=== PATIENT | male | born 1975 | race Caucasian/White ===

== ENCOUNTER → 2016-09-24 | Emergency (ER) | payer OTHER ==
[~2016-09-24] MED LIST: SODIUM CHLORIDE 1,000 ML IV STA
[2016-09-24 13:06] VITALS: BP 126/75; PULSE 63; TEMP 97.6; BMI 30.7
--- NOTE | 2016-09-24 13:54 | PDOC ---
History of Present Illness - General Chief Complaint: Lightheaded Stated Complaint: WEAKNESS, DIZZINESS, NAUSEA PALE Time Seen by Provider: 09/24/16 13:30 - History of Present Illness Initial Comments: 09/24/16 14:00 Patient is a 41 year old male with a PMHx of Polycystic kidney disease, HTN, Diverticulitis, and Asthma who presents to the ED after an episode of diaphoresis, dizziness, lightheadedness with near syncope. Patient states he was in the bathroom due to a second episode of left upper quadrant abdominal pain and nonbloody diarrhea when he suddenly "felt faint." He looked in the mirror and noticed he looked pale. Patient reports he was very diaphoretic associated with nausea. When questioning about his abdominal pain and diarrhea the patient states he had one episode of sharp nonradiating left upper quadrant pain with one episode of diarrhea last night around 0200 and another one this afternoon. Patient states he was nor recently sick and that he had an intense workout last night and this morning. Patient states the episode of dizziness and lightheadedness was the first time he experienced it. He denies chest pain, palpitations, shortness of breath He denies loss of consciousness, headaches, acute visual changes He denies fever, chills, vomiting. He denies dysuria, frequency, urgency PMHx: Polycystic kidney disease, HTN, Diverticulitis, and Asthma PSHx: Cholecystectomy MEDS: Lisinopril 20mg PO daily Allergies: Sulfa drugs, Oxycodone, Shellfish Socials: Denies drugs or smoking. Social drinker PCP: Dr. Tanna Mcgarry Past History - Past Medical History Allergies/Adverse Reactions: Allergies Allergy/AdvReac Type Severity Reaction Status Date / Time oxycodone HCl Allergy Verified 09/24/16 13:06 [From OxyContin] Sulfa (Sulfonamide Allergy Swelling Verified 09/24/16 13:06 Antibiotics) Home Medications: Ambulatory Orders Lisinopril [Prinivil] 20 mg PO DAILY 09/24/16 Dialysis: No (KIDNEY PROBLEMS--POLYCYSTIC) GI Disorders: Yes (DIVERTICULITIS) HTN: Yes - Surgical History Abdominal Surgery: Yes (ING HERNIA) Cholecystectomy: Yes - Psycho/Social/Smoking Cessation Hx Suicidal Ideation: No Smoking History: Never smoked Hx Alcohol Use: Yes (SOCIAL) Drug/Substance Use Hx: No Substance Use Type: None Review of Systems - Review of Systems Constitutional: Yes: Diaphoresis. No: Chills, Fever, Loss of Appetite, Malaise , Night Sweats HEENTM: No: Eye Pain, Blurred Vision, Double Vision, Nose Congestion, Throat Pain, Throat Swelling, Difficulty Swallowing Respiratory: No: See HPI, Cough, Orthopnea, Shortness of Breath, SOB with Exertion, SOB at Rest, Stridor, Wheezing, Productive cough, Hemoptysis Cardiac (ROS): Yes: Lightheadedness. No: Chest Pain, Edema, Irregular Heart Rate, Palpitations, Syncope, Chest Tightness ABD/GI: Yes: Diarrhea, Nausea, Abdominal cramping (left upper quadrant ). No: Difficulty Swallowing, Poor Fluid Intake, Vomiting : No: Burning, Dysuria, Discharge, Frequency, Hematuria Musculoskeletal: No: Back Pain, Joint Pain Integumentary: No: Bruising, Dryness, Erythema Neurological: Yes: Dizziness. No: Headache, Numbness, Paresthesia, Weakness Psychiatric: No: Anxiety, Depression Endocrine: No: Intolerance to Cold, Intolerance to Heat Hematologic/Lymphatic: No: Anemia, Blood Clots *Physical Exam - Vital Signs Last Vital Signs Temp Pulse Resp BP Pulse Ox 97.6 F 63 20 126/75 98 09/24/16 13:03 09/24/16 13:03 09/24/16 13:03 09/24/16 13:03 09/24/16 13:03 - Physical Exam Comments: 09/24/16 14:24 GENERAL: Well developed, well nourished. Awake and alert. No acute distress. HEENT: Normocephalic, atraumatic. PERRLA, EOMI. No conjunctival pallor. Sclera are non-icteric. Moist mucous membranes. Oropharynx is clear. NECK: Supple. Full ROM. No JVD. Carotid pulses 2+ and symmetric, without bruits. CARDIOVASCULAR: Regular rate and rhythm. No murmurs, rubs, or gallops. Distal pulses are 2+ and symmetric. PULMONARY: No evidence of respiratory distress. Lungs clear to auscultation bilaterally. No wheezing, rales or rhonchi. ABDOMINAL: Soft. Tenderness upon deep palpation of left upper quadrant. Non- distended. No rebound or guarding. No organomegaly. Normoactive bowel sounds. MUSCULOSKELETAL: Normal range of motion at all joints. No bony deformities or tenderness. No CVA tenderness. EXTREMITIES: No cyanosis. No clubbing. No edema. No calf tenderness. SKIN: Warm and dry. Normal capillary refill. No rashes. No jaundice. NEUROLOGICAL: Alert, awake, appropriate. Cranial nerves 2-12 intact. No motor deficits in the in face, upper extremities and lower extremities. Normal speech. PSYCHIATRIC: Cooperative. Good eye contact. Appropriate mood and affect Heart Score/ECG Review - ECG Impressions Comment:: 09/24/16 15:50 Sinus bradycardia @56 BPM, (-) ST-T Changes, QTc 391ms ED Treatment Course - LABORATORY CBC & Chemistry Diagram: 09/24/16 14:16 09/24/16 14:16 - ADDITIONAL ORDERS Additional order review: Laboratory Results 09/24/16 09/24/16 15:59 14:16 Sodium 139 Potassium 4.4 Chloride 104 Carbon Dioxide 25 Anion Gap 10 BUN 35 H Creatinine 1.6 H Creat Clearance w eGFR 48.36 Random Glucose 119 H Calcium 9.1 Total Bilirubin 1.6 H AST 28 ALT 28 Alkaline Phosphatase 58 Total Protein 7.0 Albumin 4.2 Lipase 190 Urine Color Lt. yellow Urine Appearance Clear Urine pH 5.5 Ur Specific [place] 1.015 Urine Protein Negative Urine Glucose (UA) Negative Urine Ketones Negative Urine Blood Negative Urine Nitrite Negative Urine Bilirubin Negative Urine Urobilinogen 0.2 e.u/dl Ur Leukocyte Esterase Negative 09/24/16 14:16 RBC 4.27 MCV 92.6 MCHC 34.1 RDW 13.5 MPV 9.4 Neutrophils % 71.7 Lymphocytes % 17.2 Monocytes % 8.3 Eosinophils % 1.9 Basophils % 0.9 - Medications Given in the ED: ED Medications Discontinued Medications Generic Name Dose Route Start Last Admin Trade Name Freq PRN Reason Stop Dose Admin Sodium Chloride 1,000 mls @ 1,000 mls/hr 09/24/16 13:59 09/24/16 14:10 Normal Saline - IV 09/24/16 14:58 1,000 mls/hr ASDIR STA Administration Medical Decision Making - Medical Decision Making 09/24/16 14:28 Patient is a 41 year old male with a PMHx of PCKD, HTN, Diverticulitis, Asthma who presents to the ED for abdominal pain, nausea, diarrhea, dizziness, lightheadedness, diaphoresis with a near syncopal episode. Differential Diagnosis include but not limited to hypovolemia, electrolyte abnormality, gastroenteritis, vasovagal syncope. ED Course and Treatment: -CBC -CMP -Lipase -Urinalysis -IV NS 1 Bolus 09/24/16 15:21 -CBC wnl -CMP revealed Cr 1.6 but states he was informed by his PCP that creatinine is elevated possibly due to PCKD -Patient re-evaluated and states he is feeling much better and is able to ambulate without dizziness or lightheadedness -EKG pending -Continue with fluids 09/24/16 15:49 -EKG wnl -Patient tolerating solids and fluids without any complaints. He denies any current abdominal pain. -U/A pending and will likely be discharged home 09/24/16 16:17 -U/A Negative -Patient may be discharged home and is to follow up with PCP *DC/Admit/Observation/Transfer Diagnosis at time of Disposition: Pre-syncope - Discharge Dispostion Disposition: HOME Condition at time of disposition: Stable Admit: No - Patient Instructions Additional Instructions: -Please follow up with your primary care physician and discuss with your physician about your elevated creatinine -If you experience any loss of consciousness or shortness of breath and chest pain, return to the ED -Decrease your protein intake -Remain hydrated and drink a lot of water
[2016-09-24 14:33] LABS: BASOPHIL 0.9 % (0-2.0); EOSINOPHIL 1.9 % (0-4.5); MCH 31.6 pg (25.7-33.7); MCHC 34.1 g/dl (32.0-35.9); MEAN CELL VOLUME 92.6 fl (80-96); MEAN PLT VOLUME 9.4 fl (7.5-11.1); NEUTROPHILS 71.7 % (42.8-82.8); PLATELET COUNT 233 K/MM3 (134-434); RDW 13.5 % (11.9-15.9); WHITE BLOOD COUNT 8.1 K/mm3 (4.0-10.0)
[2016-09-24 14:55] LABS: ALBUMIN 4.2 g/dl (3.4-5.0); CALCIUM 9.1 mg/dL (8.5-10.1); CREATININE 1.6 mg/dL (0.7-1.3)
[2016-09-24 14:57] LABS: BILIRUBIN,TOTAL 1.6 mg/dL (0.2-1.0)
--- NOTE | 2016-09-24 15:47 | PDOC ---
Attending Attestation - Resident Resident Name: Arline Bowling - ED Attending Attestation I have performed the following: I have examined & evaluated the patient, The case was reviewed & discussed with the resident, I agree w/resident's findings & plan, Exceptions are as noted - HPI HPI: 09/24/16 15:46 41-year-old male with history of polycystic kidney presents with episode of lightheadedness following abdominal cramping and loose stool. - Physicial Exam PE: 09/24/16 15:46 Vital signs normal. Seen after IV fluids, feels and looks well, moist mucosa, abdomen is benign without focal guarding or rebound. - Medical Decision Making 09/24/16 15:46 Patient seen and evaluated with the resident. I agree with the overall evaluation, assessment, and management with the following summary of visit: 41-year-old male presents with likely vasovagal lightheadedness in the setting of abdominal cramping and loose stool, now resolved and feeling well. Labs are within normal limits, creatinine 1.6 which has been his recent baseline EKG without acute ischemic changes, QTC 391, intervals normal. Tolerating by mouth, received IV fluids, check UA and then likely discharge.
[2016-09-24 16:10] LABS: PH,URINE 5.5 (5.0-8.0); URINE APPEARANCE CLEAR; URINE BILIRUBIN NEGATIVE (NEGATIVE); URINE BLOOD NEGATIVE (NEGATIVE); URINE COLOR LT. YELLOW; URINE GLUCOSE (UA) NEGATIVE (NEGATIVE); URINE KETONE NEGATIVE (NEGATIVE); URINE LEUK ESTERASE NEGATIVE (NEGATIVE); URINE NITRITE NEGATIVE (NEGATIVE); URINE PROTEIN NEGATIVE (NEGATIVE); URINE UROBILINOGEN 0.2 E.U/dl E.U./dl (0.2-1.0)
--- NOTE | 2016-09-24 23:54 | EKG ---
Test Reason : Blood Pressure : / mmHG Vent. Rate : 056 BPM Atrial Rate : 056 BPM P-R Int : 176 ms QRS Dur : 090 ms QT Int : 406 ms P-R-T Axes : 058 063 054 degrees QTc Int : 391 ms SINUS BRADYCARDIA OTHERWISE NORMAL ECG NO PREVIOUS ECGS AVAILABLE Confirmed by TOÑO GAMEZ, EKATERINA ([id number]) on 09/24/2016 11:53:59 PM Referred By: Confirmed By:EKATERINA LUNDBERG MD
== END | disposition home or self-care (01) ==
LOC: JER 13:00
PROC: 3E0337Z Introduction of Electrolytic and Water Balance Substance into Peripheral Vein, Percutaneous Approach (ICD-10-PCS; principal; 2016-09-24)
DX: R55 Syncope and collapse (principal); I10 Essential (primary) hypertension; J45.909 Unspecified asthma, uncomplicated; K57.90 Diverticulosis of intestine, part unspecified, without perforation or abscess without bleeding; Q61.3 Polycystic kidney, unspecified
CPT/HCPCS: 36415; 80053; 81003; 83690; 85025; 93005; 93010; 96360; 99283-25

== ENCOUNTER 2018-07-21 20:14 | Emergency (ER) | payer OTHER ==
[2018-07-21 20:20] VITALS: BP 137/86; PULSE 70; BMI 27.3
--- NOTE | 2018-07-21 20:38 | PDOC ---
Rapid Medical Evaluation Chief Complaint: Pain Time Seen by Provider: 07/21/18 20:29 Medical Evaluation: Allergies Allergy/AdvReac Type Severity Reaction Status Date / Time oxycodone HCl Allergy Verified 07/21/18 20:20 [From OxyContin] Sulfa (Sulfonamide Allergy Swelling Verified 07/21/18 20:20 Antibiotics) Vital Signs Temp Pulse Resp BP Pulse Ox 70 18 137/86 98 07/21/18 20:16 07/21/18 20:16 07/21/18 20:16 07/21/18 20:16 07/21/18 20:29 Pt c/o: rt 3rd digit injury after hitting it against a table Pt on exam: noted mild edema to rt 3rd digit. noted small hematoma under nailbed Pt ordered: finger xray pt to proceed to the ED Discharge Disposition - Diagnosis Finger contusion - Referrals Referrals: Valerie Gann [Primary Care Provider] - - Patient Instructions - Post Discharge Activity
--- NOTE | 2018-07-21 20:47 | PDOC ---
History of Present Illness - General Chief Complaint: Pain Stated Complaint: SWOLLEN LEFT FOOT Time Seen by Provider: 07/21/18 20:29 - History of Present Illness Initial Comments: 07/21/18 20:44 43-year-old male with a past medical history significant for hypertension presents for evaluation of left foot pain and redness times one day no systemic symptoms. This foot between his fourth and fifth toe since that time his foot has become increasingly red and swollen Past History - Past Medical History Allergies/Adverse Reactions: Allergies Allergy/AdvReac Type Severity Reaction Status Date / Time oxycodone HCl Allergy Verified 07/21/18 20:20 [From OxyContin] Sulfa (Sulfonamide Allergy Swelling Verified 07/21/18 20:20 Antibiotics) Home Medications: Ambulatory Orders Lisinopril [Prinivil] 20 mg PO DAILY 09/24/16 Clindamycin [Cleocin -] 300 mg PO Q6HPO #28 capsule 07/21/18 COPD: No Dialysis: No (KIDNEY PROBLEMS--POLYCYSTIC) GI Disorders: Yes (DIVERTICULITIS) HTN: Yes - Surgical History Abdominal Surgery: Yes (ING HERNIA) Cholecystectomy: Yes - Suicide/Smoking/Psychosocial Hx Smoking History: Never smoked Hx Alcohol Use: Yes (SOCIAL) Drug/Substance Use Hx: No Substance Use Type: None Review of Systems - Review of Systems Constitutional: No: Chills, Fever, Malaise, Night Sweats Integumentary: Yes: Erythema *Physical Exam - Vital Signs Last Vital Signs Temp Pulse Resp BP Pulse Ox 70 18 137/86 98 07/21/18 20:16 07/21/18 20:16 07/21/18 20:16 07/21/18 20:16 - Physical Exam Comments: 07/21/18 20:45 The foot is warm near a thymic on the dorsum extending up into the anterior aspect of the head there is no focal area of fluctuance or induration there is sensitivity. There is full range of motion of the ankle passively there are no gross sensorimotor deficits she's neurovascularly intact Medical Decision Making - Medical Decision Making 07/21/18 20:45 The erythemic Borders were outlined. Patient was instructed to return to the emergency room should erythema extend beyond the outlined border *DC/Admit/Observation/Transfer Diagnosis at time of Disposition: Cellulitis of foot without toes, left Diagnosis at time of Disposition: (Ruled Out): Finger contusion - Discharge Dispostion Disposition: HOME Condition at time of disposition: Stable Decision to Admit order: No - Prescriptions Prescriptions: Clindamycin [Cleocin -] 300 mg PO Q6HPO #28 capsule - Referrals Referrals: Valerie Gann [Primary Care Provider] - - Patient Instructions Printed Discharge Instructions: DI for Cellulitis -- Adult, Cellulitis Additional Instructions: He states the antibiotics as directed. Return to the emergency room should symptoms worsen or go unresolved and follow-up with your primary care physician in one to 2 days. Return to the emergency room should he erythema or redness extend beyond the outline borders - Post Discharge Activity
== END 2018-07-21 21:04 | disposition home or self-care (01) ==
LOC: JERFT 20:14
DX: L03.116 Cellulitis of left lower limb (principal)
CPT/HCPCS: 99281-25

== ENCOUNTER 2018-07-22 19:22 | Emergency (ER) | payer OTHER ==
[2018-07-22 19:26] VITALS: BP 134/83; PULSE 72; TEMP 98.5; BMI 27.3
--- NOTE | 2018-07-22 19:29 | PDOC ---
Rapid Medical Evaluation Chief Complaint: Wound Time Seen by Provider: 07/22/18 19:23 Medical Evaluation: Allergies Allergy/AdvReac Type Severity Reaction Status Date / Time oxycodone HCl Allergy Verified 07/21/18 20:20 [From OxyContin] Sulfa (Sulfonamide Allergy Swelling Verified 07/21/18 20:20 Antibiotics) 07/22/18 19:24 I have performed a brief in-person evaluation of this patient. The patient presents with a chief complaint of: return visit as foot cellulitis worsening. Was here last PM, Pertinent physical exam findings: Erythema/ swelling with exudate between all toes. Erythwema extended beyond marked areas. + fevers and chills I have ordered the following: CBC, CMP, BC x 2 , Xray left foot The patient will proceed to the ED for further evaluation.
[2018-07-22 19:50] LABS: BASO % 0.5 % (0-2.0); EOS % 6.4 % (0-4.5); HEMATOCRIT 38.5 % (35.4-49); HEMOGLOBIN 13.3 GM/dL (11.7-16.9); LYMPH % 14.2 % (8-40); MCH 31.8 pg (25.7-33.7); MCHC 34.5 g/dl (32.0-35.9); MEAN CELL VOLUME 92.2 fl (80-96); MEAN PLT VOLUME 8.7 fl (7.5-11.1); MONO % 6.6 % (3.8-10.2); NEUT % 72.3 % (42.8-82.8); PLATELET COUNT 231 K/MM3 (134-434); RBC 4.18 M/mm3 (4.00-5.60); RDW 13.5 % (11.9-15.9); WHITE BLOOD COUNT 8.4 K/mm3 (4.0-10.0)
--- NOTE | 2018-07-22 19:56 | PDOC ---
Attending Attestation - Resident Resident Name: Charlotte Boogie - ED Attending Attestation I have performed the following: I have examined & evaluated the patient, The case was reviewed & discussed with the resident, I agree w/resident's findings & plan, Exceptions are as noted - HPI HPI: 07/22/18 20:25 The patient is a 43 year old male with a significant past medical history of polycystic kidney and HTN who presents to the ED with worsening left foot swelling. Patient states he developed an itchy blister between his left 5th and 4th toe 3 weeks ago. He states his symptoms worsened and he developed redness, swelling and pain to the area surrounding the blister 2 days ago. Patient was seen in the ED yesterday diagnosed with cellulitis of the left foot and discharged home with antibiotics. Patient returns to the ED today secondary to increased swelling on his left foot and ankle. Denies fever or chills. Denies any other symptoms. - Physicial Exam PE: 07/22/18 20:08 GENERAL: The patient is awake, alert, and fully oriented, Nontoxic - in no acute distress. ABDOMEN: Soft, nontender, No guarding, no rebound. No CVA tenderness EXTREMITIES: Normal range of motion, mild erythema on the dorsum of L foot, + skin break between 4ht-5th toe. warm to touch, does not break marked area - Medical Decision Making 07/22/18 19:54 43y M hx of polycystic kidney (normal renal function) pmhx presents with foot redness/celluitis, was treated with clindamycin (started yesterday) and discharged. pt noted increased swelling today so came to th eED. Pt endorsed some chlils since the redness started, but denies any fevers. 07/22/18 20:06 suspect cellulitis - no spread of redness beyond marked area. no teratment failure as he has only been on it for 1 day. will ck labs, will continue clinda 07/23/18 20:52 labs reviwed no leukocytosis will dc with pmd fu and for him to continue his clinda return precuations were discussed
--- NOTE | 2018-07-22 20:05 | PDOC ---
History of Present Illness - General Chief Complaint: Redness To Affected Area Stated Complaint: REVISIT FOOT PAIN Time Seen by Provider: 07/22/18 19:23 History Source: Patient Exam Limitations: No Limitations - History of Present Illness Initial Comments: 07/22/18 19:56 This is a 43 year old male with a medical history of polycystic kidneys, hypertension, who presents with redness and pain in his left foot. Patient was here on 07/21/18, diagnosed with cellulitis and prescribed clindamycin. 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 No overt injury to foot. NO history of cellulitis. Has history of athletes foot. Denies fever, n, v, chest pain, sob, any other bodily injury. PMH: Polycystic kidney disease, hypertension PSHx: none Social hx: denies tobacco.alcohol.drug Past History - Past Medical History Allergies/Adverse Reactions: Allergies Allergy/AdvReac Type Severity Reaction Status Date / Time oxycodone HCl Allergy Verified 07/22/18 19:26 [From OxyContin] Sulfa (Sulfonamide Allergy Swelling Verified 07/22/18 19:26 Antibiotics) Home Medications: Ambulatory Orders Lisinopril [Prinivil] 20 mg PO DAILY 09/24/16 Clindamycin [Cleocin -] 300 mg PO Q6HPO #28 capsule 07/21/18 COPD: No Dialysis: No (KIDNEY PROBLEMS--POLYCYSTIC) GI Disorders: Yes (DIVERTICULITIS) HTN: Yes - Surgical History Abdominal Surgery: Yes (ING HERNIA) Cholecystectomy: Yes - Suicide/Smoking/Psychosocial Hx Smoking History: Never smoked Hx Alcohol Use: Yes (SOCIAL) Drug/Substance Use Hx: No Substance Use Type: None Review of Systems - Review of Systems Able to Perform ROS?: Yes Is the patient limited Iraqi proficient: Yes Constitutional: No: Chills, Diaphoresis, Fever, Loss of Appetite, Weakness Respiratory: No: Cough, Shortness of Breath, SOB with Exertion Cardiac (ROS): No: Chest Pain, Edema ABD/GI: No: Abdominal Distended : No: Burning, Dysuria, Discharge Musculoskeletal: No: Back Pain, Joint Pain Neurological: No: Headache, Numbness, Paresthesia Endocrine: No: Excessive Sweating, Flushing, Intolerance to Cold, Intolerance to Heat Hematologic/Lymphatic: No: Anemia *Physical Exam - Vital Signs Last Vital Signs Temp Pulse Resp BP Pulse Ox 98.5 F 72 18 134/83 99 07/22/18 19:23 07/22/18 19:23 07/22/18 19:23 07/22/18 19:23 07/22/18 19:23 - Physical Exam General Appearance: Yes: Apparent Distress Respiratory/Chest: positive: Lungs Clear, Normal Breath Sounds Cardiovascular: positive: Regular Rhythm, Regular Rate, S1, S2 Gastrointestinal/Abdominal: positive: Normal Bowel Sounds. 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 Foot xray negative. NO white count or reported fever. Advise to continue clindamycin, if no improvement, increased swelling or erythema, advised to return. He has not taken the antibiotics long enough to call this treatment failure. 07/22/18 20:21 *DC/Admit/Observation/Transfer Diagnosis at time of Disposition: Cellulitis of foot without toes, left Cellulitis Qualifiers: Site of cellulitis: extremity Laterality: left - Discharge Dispostion Disposition: HOME Condition at time of disposition: Fair Decision to Admit order: No - Referrals - Patient Instructions Additional Instructions: MR. Pyle, you have a cellulitis of your left foot. PLease continue to take your prescribed antibiotic. IF you continue to experiance redness, swelling or fever, with in the next two days, please return to the emergency room. Please follow up with your primary doctor as soon as possible. - Post Discharge Activity
[2018-07-22 20:21] LABS: ALBUMIN 4.2 g/dl (3.4-5.0); ALK PHOS 74 U/L (45-117); ANION GAP 9 MMOL/L (8-16); BLOOD UREA NITROGEN 38 mg/dL (7-18); CALCIUM 8.8 mg/dL (8.5-10.1); CHLORIDE 105 mmol/L (98-107); CO2 27 mmol/L (21-32); CREATININE 1.6 mg/dL (0.55-1.3); GLUCOSE,RANDOM 86 mg/dL (74-106); SGOT/AST 22 U/L (15-37); SGPT/ALT 32 U/L (13-61); SODIUM 141 mmol/L (136-145); TOT PROT 7.3 g/dl (6.4-8.2)
== END 2018-07-22 20:36 | disposition home or self-care (01) ==
LOC: JER 19:22
DX: L03.116 Cellulitis of left lower limb (principal); I10 Essential (primary) hypertension; N28.1 Cyst of kidney, acquired
CPT/HCPCS: 36415; 73630-TC-LT; 80053; 85025; 87040; 99283-25

== ENCOUNTER 2018-09-03 20:13 | Emergency (ER) | payer OTHER ==
--- NOTE | 2018-09-03 20:24 | PDOC ---
Rapid Medical Evaluation Time Seen by Provider: 09/03/18 20:21 Medical Evaluation: Allergies Allergy/AdvReac Type Severity Reaction Status Date / Time oxycodone HCl Allergy Verified 07/22/18 19:26 [From OxyContin] Sulfa (Sulfonamide Allergy Swelling Verified 07/22/18 19:26 Antibiotics) 09/03/18 20:21 The patient presents with a chief complaint of: left sided chest pain aching worsened with lying on left side I have performed a brief in-person evaluation of this patient; Pertinent physical exam findings:no reproducible cp, vss I have ordered the following: labs, ekg, cxr The patient will proceed to the ED for further evaluation. Discharge Disposition - Diagnosis Chest pain - Referrals - Patient Instructions - Post Discharge Activity
[2018-09-03 20:26] VITALS: BP 142/89; PULSE 65; TEMP 98; BMI 27.4
--- NOTE | 2018-09-03 20:50 | PDOC ---
Attending Attestation - HPI HPI: 09/03/18 21:40 The patient is a 43 year old male, with a significant PMH of polycystic kidney , asthma, and HTN who presents to the emergency department with several weeks of chest pain that worsened today. The patient state pain is located to the left anterior chest wall that radiates to the left side. The patient states pain is exacerbated when laying on his left side and alleviated with rest. The patent mentions he works out everyday for one hour where he mostly stretches and lifts very heavy weights for a few seconds. The patient takes protein supplement, drinks alot of coffee and not enough water. The patient denies shortness of breath, headache and dizziness.Denies fever, chills, nausea, vomit , diarrhea and constipation.Denies dysuria, frequency, urgency and hematuria. Allergies: oxycodone Past surgical history: Social history: No reported Family History: Mother had kidney transplant PCP: None reported Documentation prepared by Yessica Aguilar, acting as chief medical technologist for Alberta Virgen MD. - Physicial Exam PE: 09/03/18 21:55 GENERAL: The patient is in no acute distress. LUNGS: Breath sounds equal, clear to auscultation bilaterally. No wheezes, and no crackles. HEART:Regular rate and rhythm, normal S1 and S2 without murmur, rub or gallop. ABDOMEN: Soft, nontender, normoactive bowel sounds. No guarding, no rebound. No masses palpable. EXTREMITIES: Normal range of motion, no edema. No clubbing or cyanosis. No erythema, or tenderness. NEUROLOGICAL: Cranial nerves II through XII grossly intact. Normal speech. No focal neurological deficits. MUSCULOSKELETAL: Back non-tender to palpation, no CVA tenderness SKIN: Warm, Dry, normal turgor, no rashes or lesions noted. Documentation prepared by Yessica Aguilar, acting as chief medical technologist for Alberta Virgen MD. <Yessica Aguilar - Last Filed: 09/03/18 21:51> - Resident Resident Name: Ryder Thomas - ED Attending Attestation I have performed the following: I have examined & evaluated the patient, The case was reviewed & discussed with the resident, I agree w/resident's findings & plan - Medical Decision Making 09/03/18 21:16 Pt comes with chest pain and he has flipped T waves in V1 and V2 - new change in V2. Possible septal ischemia. 09/03/18 22:09 Pt has normal troponin and CBC. Chem demonstrates elevated BUN/Cr 50/1.9 We will hydrate with a liter of saline. We will also repeat a troponin. 09/03/18 22:41 CPK and CK MB are normal 09/04/18 00:25 EKG#2 is NSR; no flipped T waves in V2 Stable to go home <Alberta Virgen - Last Filed: 09/04/18 19:42> Heart Score/ECG Review - ECG Intrepretation Rhythm: Regular Rhythm - [place]: Normal - P and MO Delta Wave(s) Present: No WPW: No - QRS Poor R Wave Progression: No Q Wave Present: No - ST and T Early Repolarization: No Non Specific ST-T Wave changes: No Flattened T Waves: No Prolonged Q-T Interval: No - ECG Impressions Normal ECG: No Non-specific ST Elevation: No Ischemic Changes: No (EKG#1 flipped T in V2; EKG#2 upright T wave in V2) <Alberta Virgen - Last Filed: 09/04/18 19:42>
--- NOTE | 2018-09-03 20:52 | PDOC ---
History of Present Illness - General Chief Complaint: Chest Pain Stated Complaint: CHEST PAIN Time Seen by Provider: 09/03/18 20:21 History Source: Patient, Old Records Exam Limitations: No Limitations - History of Present Illness Initial Comments: HPI: 43 y/o male presenting to [facility] ER via private auto complaining of left sided chest pain for the past several weeks. Pain is localized to the left side with radiation to back last night while laying in bed. Pain is made worse by lying on his left side. No change with exercise or change in exercise tolerance. Pt reports powerlifting and running within the past two days. 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 H/o HTN on lisinopril, polycystic kidney disease, and asthma. High routine caffeine intake: C4 pre-workout, 3-4 cups of coffee, and sugar free red bull. Social Hx: - EtOH: Social drinker, 3-4 drinks per month - Tobacco: never smoker - Street Drugs: Denies - Supplements: C4 pre-workout Medical Hx: - HTN - Polycystic Kidney Disease - Asthma, mild intermittent Family Hx: - No first degree relative with known heart disease or SD Past History - Past Medical History Allergies/Adverse Reactions: Allergies Allergy/AdvReac Type Severity Reaction Status Date / Time oxycodone HCl Allergy Verified 09/03/18 20:27 [From OxyContin] Sulfa (Sulfonamide Allergy Swelling Verified 09/03/18 20:27 Antibiotics) Home Medications: Ambulatory Orders Lisinopril [Prinivil] 20 mg PO DAILY 09/24/16 COPD: No Dialysis: No (KIDNEY PROBLEMS--POLYCYSTIC) GI Disorders: Yes (DIVERTICULITIS) HTN: Yes - Surgical History Abdominal Surgery: Yes (ING HERNIA) Cholecystectomy: Yes - Immunization History Immunization Up to Date: Yes - Suicide/Smoking/Psychosocial Hx Smoking History: Never smoked Have you smoked in the past 12 months: No Information on smoking cessation initiated: No Hx Alcohol Use: No Drug/Substance Use Hx: No Substance Use Type: None Review of Systems - Review of Systems Able to Perform ROS?: Yes Comments:: In addition to that documented in the HPI above, the additional ROS was obtained : Constitutional: Denies fevers or chills Eyes: Denies vision changes ENMT: Denies sore throat CV: Per HPI Resp: Denies SOB GI: Denies vomiting or diarrhea : Denies painful urination MSK: Denies recent trauma Skin: Denies new rashes Neuro: Endorses occasional and unchanged radicular pain to left upper arm Endocrine: Denies polyuria Heme: Denies bleeding or bruising *Physical Exam - Vital Signs Last Vital Signs Temp Pulse Resp BP Pulse Ox 98.0 F 65 18 142/89 100 09/03/18 20:24 09/03/18 20:24 09/03/18 20:24 09/03/18 20:24 09/03/18 20:24 - Physical Exam Comments: Constitutional: Well-developed, well-nourished, athletic male in no acute distress or obvious discomfort. Found sitting upright on edge of hospital bed. Alert and oriented x4. Answered all questions appropriately and completely. Speech was non-labored, non-pressured. Head: Normocephalic. No obvious external signs of trauma. Eyes: Sclerae white. EARS: Hearing grossly intact. NOSE: No nasal discharge. Neck: Supple, trachea is midline. Cardiovascular: Regular rate and regular rhythm. No murmur, rubs, clicks, or gallops. Peripheral pulses: Radial pulses full. Respiratory: Breathing unlabored. Equal chest rise and fall. Clear to auscultation bilaterally. No stridor, no wheezing, no rhonchi. Neuro: Alert and oriented. Moving all four extremities spontaneously. Skin: Warm, dry, and intact. MSK: No pain with active or passive movement of left shoulder. No pain with lift off or empty beer can test. Psych: Affect: appropriate. Mood: normal. Moderate Sedation - Procedure Monitoring Vital Signs: Procedure Monitoring Vital Signs Temperature 98.0 F 09/03/18 20:24 Pulse Rate 65 09/03/18 20:24 Respiratory Rate 18 09/03/18 20:24 Blood Pressure 142/89 09/03/18 20:24 O2 Sat by Pulse Oximetry (%) 100 09/03/18 20:24 ED Treatment Course - LABORATORY CBC & Chemistry Diagram: 09/03/18 21:23 09/03/18 21:23 Medical Decision Making - Medical Decision Making *Reviewed vital signs, nursing notes, and prior visit documentation (if available). 43 y/o male with HTN and polycystic kidney disease presenting with left sided chest pain made worse with body position for several weeks. Powerlifter. No change in exercise tolerance. Normal EKG at PCPs office yesterday. Low suspicion for ACS, arrhythmia, pneumonia, aortic dissection, pericardial effusion, myocarditis, or pericarditis. Afebrile. Vitals unremarkable for hypertension or tachycardia. Will obtain CBC, CMP, Troponin, EKG, and CXR. Ordered ASA. EKG: Sinus rhythm with a ventricular rate of 62 bpm. Normal axis. Normal intervals. No ST segment elevation or depression. No hyperacute T waves. No pathologic Q waves. T wave inversions in V2, which were not present on EKG from PCPs office or on previous EKG from this facility. CXR unremarkable for acute cardiopulmonary process. CBC unremarkable for anemia or leukocytosis. CMP unremarkable for electrolyte derangement. Cr trended upward from 1.6 to 1.9 and BUN trended upward from 38 to 50 since last visit on 07/22/2018. Possible FIONA versus progression of polycystic kidney disease. Administered 1L IVFB. Will encourage increased PO hydration and outpatient follow up. Initial troponin and three hour troponin not elevated. Three hour EKG revealed normal T waves in V2. Low suspicion for acute ACS. Continue to suspect atypical chest pain, possibly muscular pain secondary to weight lifting. Discussed imaging and laboratory results with pt. Answered all questions. Provided return precautions. Pt expressed verbal understanding and agreement with plan to discharge home with outpatient follow up. Will provided cardiology referral as well. *DC/Admit/Observation/Transfer Diagnosis at time of Disposition: Atypical chest pain - Discharge Dispostion Disposition: HOME Condition at time of disposition: Good Decision to Admit order: No - Referrals Referrals: Zack Ng MD [Staff Physician] - - Patient Instructions Printed Discharge Instructions: DI for Atypical Chest Pain Additional Instructions: You were seen today for left sided chest pain for the past several weeks. Your EKG, blood work, and xray were normal. This pain is likely muscular in nature, but given your hypertension and polycystic kidney disease I have placed a referral for you to follow up with a [employer], Dr. Ng. You will need to call to make an appointment. The number is included in the packet above. You can take over the counter Tylenol as needed for pain. Take as directed on the package insert. Do not exceed the recommended dosage. Go to the nearest emergency department if your condition worsens or you feel like you need additional emergency evaluation. Print Language: GREENLANDIC - Post Discharge Activity
[2018-09-03 21:28] LABS: EOS % 3.6 % (0-4.5); HEMATOCRIT 36.4 % (35.4-49); HEMOGLOBIN 12.9 GM/dL (11.7-16.9); LYMPH % 26.6 % (8-40); MCH 32.1 pg (25.7-33.7); MCHC 35.3 g/dl (32.0-35.9); MEAN CELL VOLUME 90.8 fl (80-96); MONO % 6.6 % (3.8-10.2); NEUT % 62.2 % (42.8-82.8); PLATELET COUNT 237 K/MM3 (134-434); RBC 4.01 M/mm3 (4.00-5.60); RDW 13.4 % (11.9-15.9); WHITE BLOOD COUNT 6.4 K/mm3 (4.0-10.0)
[2018-09-03] MEDS ORDERED: SODIUM CHLORIDE 0.9% 500 ML INFUS.BAG IV ONE (21:46)
[2018-09-03 22:00] LABS: ALBUMIN 4.2 g/dl (3.4-5.0); ALK PHOS 68 U/L (45-117); ANION GAP 7 MMOL/L (8-16); BLOOD UREA NITROGEN 50 mg/dL (7-18); CHLORIDE 105 mmol/L (98-107); CO2 26 mmol/L (21-32); CREATININE 1.9 mg/dL (0.55-1.3); GLUCOSE,RANDOM 93 mg/dL (74-106); POTASSIUM 4.3 mmol/L (3.5-5.1); SGOT/AST 26 U/L (15-37); SGPT/ALT 27 U/L (13-61); SODIUM 138 mmol/L (136-145); TOT PROT 7.3 g/dl (6.4-8.2)
[2018-09-03] MEDS ORDERED: ASPIRIN 81 MG CHEWABLE TABLETS PO ONE (23:23)
[2018-09-03] MEDS ORDERED: ASPIRIN 81 MG CHEWABLE TABLETS ONE (23:27)
--- NOTE | 2018-09-04 15:45 | EKG ---
Test Reason : Blood Pressure : / mmHG Vent. Rate : 062 BPM Atrial Rate : 062 BPM P-R Int : 178 ms QRS Dur : 084 ms QT Int : 414 ms P-R-T Axes : 042 071 040 degrees QTc Int : 420 ms NORMAL SINUS RHYTHM WITH SINUS ARRHYTHMIA NORMAL ECG WHEN COMPARED WITH ECG OF 03-SEP-2018 21:08, NO SIGNIFICANT CHANGE WAS FOUND Confirmed by FLETCHER DOLAN MD ([id number]) on 09/04/2018 3:44:47 PM Referred By: Confirmed By:FLETCHER DOLAN MD
--- NOTE | 2018-09-04 15:46 | EKG ---
Test Reason : Blood Pressure : / mmHG Vent. Rate : 058 BPM Atrial Rate : 058 BPM P-R Int : 164 ms QRS Dur : 080 ms QT Int : 400 ms P-R-T Axes : 040 054 033 degrees QTc Int : 392 ms SINUS BRADYCARDIA OTHERWISE NORMAL ECG WHEN COMPARED WITH ECG OF 24-SEP-2016 15:39, NO SIGNIFICANT CHANGE WAS FOUND Confirmed by FLETCHER DOLAN MD ([id number]) on 09/04/2018 3:46:09 PM Referred By: Confirmed By:FLETCHER DOLAN MD
== END 2018-09-04 01:38 | disposition home or self-care (01) ==
LOC: JER 20:13
DX: R07.89 Other chest pain (principal); I10 Essential (primary) hypertension; Q61.3 Polycystic kidney, unspecified
CPT/HCPCS: 36415; 71046-TC-FY; 80053; 82550; 82553; 84484; 85025; 85379; 93005; 93010; 99284-25